=== PATIENT | female | born 1995 | race Caucasian/White ===

== ENCOUNTER 2022-02-23 17:57 | Emergency (ER) | payer OTHER ==
[2022-02-23 18:49] LABS: HEMOGLOBIN 11.9 gm/dl (12.3-15.3); RED BLOOD COUNT 4.3 M/UL (4.00-5.10); WHITE BLOOD COUNT 9.3 K/UL (4.5-11.0)
[2022-02-23 18:59] LABS: BUN/CREATININE RATIO 21 (0-10)
[2022-02-23] MEDS ORDERED: PHENERGAN 12.12.5 M1 PO (20:55)
== END 2022-02-23 21:01 | disposition home or self-care (01) ==
LOC: ER1 17:57
DX: O21.9 Vomiting of pregnancy, unspecified (principal); Z3A.22 22 weeks gestation of pregnancy; Z20.822 Contact with and (suspected) exposure to COVID-19
CPT/HCPCS: 0240U; 80053; 81001; 83690; 84702; 85025; 99284